=== PATIENT | female | born 1930 | race Caucasian/White ===

== ENCOUNTER 2016-07-11 19:32 | Observation (INO) | payer MEDICARE ==
--- NOTE | 2016-07-11 20:04 | Emergency Department Record ---
History of Present Illness - General Chief Complaint: Syncope Stated Complaint: SYNCOPE Source: Patient, EMS Mode of Arrival: EMS Limitations: No limitations - History of Present Illness Initial Comments: 85 yo female presents after almost passing out per the patient and a concern by the [facility] staff that she passed out. 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 she does not believe she passed out but nearly did. No chest pain. No shortness of breath. No pain. No new weakness or dizziness. No history of CAD or syncope. She and her brother in law deny any recent changes in her health. She states she is not having any symptoms at this time. Witnesses state the patient had complete LOC with syncope. No incontinence. No seizure. MD Complaint: Loss of consciousness -: Minutes(s) Prodromal Symptoms: Lightheaded -: Minutes(s) Witnessed: Yes - by bystander Injuries Sustained Associated with Event: None Current Symptoms: None Treatments Prior to Arrival: None - [place] Coma Scale Eye Response: (4) Open spontaneously Motor Response: (6) Obeys commands Verbal Response: (5) Oriented [place] Total: 15 - Related Data Home Medications Medication Instructions Recorded Confirmed Last Taken Cholecalciferol (Vitamin D3) 5,000 unit PO DAILY 07/11/16 07/11/16 07/11/16 [Vitamin D3] Furosemide [Lasix] 20 mg PO DAILY 07/11/16 07/11/16 07/11/16 Levothyroxine Sodium [Synthroid] 25 mcg PO DAILY 07/11/16 07/11/16 07/11/16 Lisinopril 20 mg PO DAILY 07/11/16 07/11/16 07/11/16 Metformin HCl [Glucophage] 500 mg PO DAILY 07/11/16 07/11/16 07/11/16 Ondansetron HCl [Zofran] 4 mg PO Q6HR PRN 07/11/16 07/11/16 Unknown Trazodone HCl [Desyrel] 50 mg PO QHS PRN 07/11/16 07/11/16 Unknown Allergies Allergy/AdvReac Type Severity Reaction Status Date / Time iopamidol [IOPAMIDOL] Allergy Unknown PT UNSURE Verified 07/11/16 20:14 OF REACTION Review of Systems Constitutional: Reports: Weakness. Denies: Chills, Fever, Malaise Eyes: Denies: Eye discharge, Eye pain, Photophobia, Vision change ENT: Denies: Congestion, Throat pain Respiratory: Denies: Cough, Dyspnea, Hemoptysis, Stridor, Wheezes Cardiovascular: Reports: Syncope. Denies: Arrhythmia, Chest pain, Dyspnea on exertion, Edema, Palpitations Endocrine: Denies: Fatigue, Polydipsia, Polyuria Gastrointestinal: Denies: Abdominal pain, Diarrhea, Nausea, Vomiting Genitourinary: Denies: Dysuria, Urgency Musculoskeletal: Denies: Arthralgia, Back pain, Myalgia, Neck pain Skin: Denies: Bruising, Change in color, Rash Neurological: Denies: Confusion, Headache, Numbness, Tremors, Vertigo, Weakness Psychiatric: Denies: Anxiety Hematological/Lymphatic: Denies: Blood Clots, Easy bleeding, Easy bruising, Swollen glands Physical Exam - General General Appearance: Alert, Oriented x3, Cooperative, No acute distress Limitations: No limitations - Head Head exam: Atraumatic, Normocephalic, Normal inspection - Eye Eye exam: Normal appearance, PERRL. negative: Conjunctival injection, Periorbital swelling - ENT ENT exam: Normal exam, Mucous membranes moist, Normal external ear exam, Normal orophraynx Ear exam: Normal external inspection. negative: External canal tenderness Nasal Exam: Normal inspection. negative: Discharge, Sinus tenderness Mouth exam: Normal external inspection, Tongue normal Teeth exam: Normal inspection. negative: Dental caries Throat exam: Normal inspection. negative: Tonsillar erythema, Tonsillar exudate - Neck Neck exam: Normal inspection, Full ROM. negative: Lymphadenopathy, Tenderness - Respiratory Respiratory exam: Normal lung sounds bilaterally. negative: Respiratory distress, Rhonchi, Stridor, Wheezes - Cardiovascular Cardiovascular Exam: Regular rate, Normal rhythm, Normal heart sounds - GI/Abdominal GI/Abdominal exam: Soft. negative: Tenderness - Rectal Rectal exam: Deferred - exam: Deferred - Extremities Extremities exam: Normal inspection, Full ROM, Normal capillary refill. negative: Tenderness - Back Back exam: Reports: Normal inspection, Full ROM. Denies: Muscle spasm, Rash noted, Tenderness - Neurological Neurological exam: Alert, Normal gait, Oriented X3, Reflexes normal. 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 07/11/16 22:46 Medical Decision Making - Lab Data Result diagrams: 07/11/16 19:13 07/11/16 19:13 Disposition Disposition: Admit Clinical Impression: Syncope Qualifiers: Syncope type: unspecified Qualified Code(s): R55 - Syncope and collapse Decision to Admit: Admit from ER Decision to Admit Date: 07/11/16 Decision to Admit Time: 22:47 Forms: Patient Portal Access Time of Disposition: 22:47
[2016-07-11 20:20] LABS: BASO % 0.2 % (0-6); EOS % 2.7 % (0-6); GRAN % 52.6 % (47-80); HEMATOCRIT 37.9 % (35.0-47.0); HEMOGLOBIN 12.3 gm/dl (11.6-16.0); LYMPH % 33.5 % (16-45); MEAN CORPUSCULAR HEMOGLOBIN 29.9 pg (27-33); MEAN CORPUSCULAR HGB CONC 32.5 g/dl (32-36); MEAN PLATELET VOLUME 9.6 fl (7.4-10.4); PLATELET COUNT 343 K/uL (130-400); RED BLOOD COUNT 4.12 M/uL (3.80-5.40)
[2016-07-11 20:32] LABS: ALB/GLOB RATIO 1.3 (1.1-1.8); ALBUMIN 3.8 gm/dL (3.5-5.0); ALKALINE PHOSPHATASE 57 U/L (38-126); ALT/SGPT 20 U/L (9-52); ANION GAP 7.9 (7-16); AST/SGOT 21 U/L (14-36); BILIRUBIN,TOTAL 0.61 mg/dL (0.2-1.3); BLOOD UREA NITROGEN 36 mg/dL (7-17); CARBON DIOXIDE 30.1 mmol/L (22-30); CREATINE PHOSPHOKINASE 32 U/L (30-135); CREATININE 1.4 mg/dL (0.52-1.04); EST GLOMERULAR FILTRATION RATE 38 ml/min; GLUCOSE,RANDOM 125 mg/dL (70-110); TOTAL PROTEIN 6.7 gm/dL (6.3-8.2)
[2016-07-11 20:33] LABS: INR 0.95; PARTIAL THROMBOPLASTIN TIME 24.3 SECONDS (24.5-39.1); PROTHROMBIN TIME (PATIENT) 10.7 SECONDS (9.5-12.1)
[2016-07-11 20:43] LABS: CKMB 0.6 ug/L (0-6); TROPONIN I < 0.012 ng/mL (0.00-0.034)
[2016-07-12] MEDS ORDERED: 0.9 % SODIUM CHLORIDE 1000ML 1,000 ML IV PRN (00:22)
[2016-07-12] MEDS ORDERED: TRAZODONE 50 MG TABLET PO PRN (00:22)
[2016-07-12] MEDS ORDERED: LEVOTHYROXINE SODIUM 25 MCG TABLET PO SCH (07:00)
[2016-07-12 09:06] LABS: CKMB 0.5 ug/L (0-6); TROPONIN I 0.013 ng/mL (0.00-0.034)
[2016-07-12 09:08] LABS: URINE COLOR YELLOW
[2016-07-12 09:09] LABS: URINE APPEARANCE CLEAR; URINE BILIRUBIN NEGATIVE (NEGATIVE); URINE BLOOD NEGATIVE (NEGATIVE); URINE GLUCOSE (UA) NEGATIVE (NEGATIVE); URINE KETONE NEGATIVE (NEGATIVE); URINE LEUKOCYTE ESTERASE NEGATIVE (NEGATIVE); URINE NITRITE NEGATIVE (NEGATIVE); URINE PROTEIN NEGATIVE (NEGATIVE); URINE UROBILINOGEN 0.2 E.U./dL (0.20 - 1.00)
[2016-07-12] MEDS ORDERED: METFORMIN 500 MG TABLET PO SCH (10:00)
[2016-07-12] MEDS ORDERED: LISINOPRIL 20 MG TABLET PO SCH (10:00)
--- NOTE | 2016-07-12 14:08 | History and Physical Report ---
DATE OF ADMISSION: 07/12/2016 CHIEF COMPLAINT: Syncope. HISTORY OF CHIEF COMPLAINT: This 85-year-old female was at the assisted living at [place], [place] and she passed out. She was brought into the Emergency Department by ambulance and is doing much better. No symptoms at the time she got to the Emergency Department. She has no recollection of what happened because of her dementia. Evaluated by Dr. Reyes and no significant objective findings obtained. The head CT was negative. There is EKG showing left bundle branch block. Cardiac enzymes are normal. Labs, the only unremarkable finding was the BUN was elevated at 36, creatinine 1.4. Dehydration may have contributed to her syncope with vasovagal syncope. She was admitted to the hospital for terra cotta mason, serial cardiac EKGs and further evaluation. MEDICAL HISTORY: Diabetes mellitus on metformin, hypothyroidism, hypertension, and dementia. SURGICAL HISTORY: T&A. ADMISSION MEDICATIONS: 1. Vitamin D 5000 units daily. 2. Lasix 20 mg daily. 3. Levothyroxine 25 mcg daily. 4. Lisinopril 20 mg daily. 5. Metformin 500 mg daily. 6. Zofran 4 mg q.6 hours p.r.n. 7. Trazodone 50 mg at h.s. for insomnia. ALLERGIES: Iopamidol, unknown reaction. FAMILY AND PSYCHOSOCIAL HISTORY: Unremarkable. SYSTEMS REVIEW: HEENT: No upper respiratory infection symptoms, cough, cold or congestion. Cardiovascular: No chest pain, palpitation, arrhythmia. Respiratory: No cough, cold or congestion. Gastrointestinal: No nausea, vomiting, diarrhea, black stools or bloody stools. Genitourinary: No dysuria, hematuria, frequency, or burning on urination. Urine was negative for any signs of urinary tract infection. Musculoskeletal: No joint or bone abnormalities. Moving all 4 extremities. 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 Gynecological: No lumps in her breasts or abnormal vaginal bleeding. Endocrine: She has diabetes mellitus and hypothyroidism. Integument: No rash, ulcers, changing moles, or yellow skin. PHYSICAL EXAMINATION: VITAL SIGNSs: Height is 4 feet 9 inches. Weight is 148 pounds. Temperature is 97. Pulse is 74. Respiratory rate is 12. Blood pressure is 139/62. Pulse ox is 99% on room air. HEENT: Pupils are equal, round and reactive to light and accommodation. Extraocular muscles are intact. Throat is clear. Nose is clear. The tympanic membranes are tucker. NECK: Supple, no jugular venous distention, no hepatojugular reflux, no carotid bruits. Thyroid is smooth. CARDIOVASCULAR: Regular rate and rhythm without murmurs, clicks, rubs, or gallops. Monitor showing left bundle branch block. RESPIRATORY: Clear to auscultation and percussion. ABDOMEN: Soft, nontender, no hepatosplenomegaly, no masses, no tenderness. Bowel sounds active. No bruits. EXTREMITIES: No pitting edema, no cyanosis, no clubbing. Full range of motion. Peripheral pulses good. BREASTS, GYNECOLOGIC AND RECTAL: Deferred. NEUROLOGIC: Cranial nerves II-XII intact. No gross deficits. Sensation normal. Strength normal. Deep tendon reflex equal bilaterally. She has an old [place] palsy with slight asymmetry of her face. Babinski negative. MENTAL STATUS: Alert and oriented x 3. IMPRESSION: 1. Syncope. 2. Dehydration. 3. Vasovagal syncope. 4. Status post diabetes mellitus. 5. Status post hypothyroidism. 6. Status post hypertension. 7. Status post dementia. PLAN: Cardiac monitoring, serial cardiac enzymes and will stop the Lasix. She was given IV fluids cautiously. MTDD
--- NOTE | 2016-07-13 15:34 | Discharge Summary ---
DATE OF ADMISSION: 07/12/2016 DATE OF DISCHARGE: 07/12/2016 DISCHARGE DIAGNOSES: 1. Syncope. 2. Dehydration. 3. Vasovagal syncope. 4. Status post diabetes mellitus. 5. Status post hypothyroidism. 6. Status post hypertension. ATTENDING PHYSICIAN: Johny Erickson DO REASON FOR HOSPITALIZATION: This 85-year-old female passed out at the [facility] in [place], [place], was brought into the emergency department by ambulance, evaluated by Dr. Reyes. She was doing fine, talking. No findings were obtained in the Emergency Department. EKG showing left bundle branch block. Cardiac enzymes are normal. She was placed in the hospital for cardiac monitoring and further evaluation. She had an elevated BUN and creatinine and she is on Lasix. I feel that her dehydration was adding to her syncope. Significant findings from examination: Two sets of cardiac enzymes were negative. The EKG stayed the same at left bundle branch block. Her cardiac monitoring is showing no significant arrhythmias. She is in normal sinus rhythm. LABORATORY: WBC was 9000, hemoglobin was 12.3. Her BUN was 36, creatinine was 1.4, potassium was 3.7. Cardiac enzymes x 2 were negative. THERAPY PROVIDED: The patient was given IV fluids and is doing much better, sitting up at the bedside, moving around the room without anybody assisting her. REVIEW OF SYSTEMS: She does have dementia, does nontender remember any of the events that happened, and she is eating breakfast. She denies any current pain , difficulty breathing, abdominal discomfort, or any problems with swelling in her legs. HOSPITAL COURSE: The patient is improved and is doing much better. CONDITION AT DISCHARGED: Improved. DISCHARGE INSTRUCTIONS: Follow up with Dr. De La Vega on July 18. She is to be discharged back to the [facility] in [place], [place]. We will discontinue the Lasix. Recommend checking her glucose once a day for diabetes. If stable can spread it out to once a week. ACTIVITY: As tolerated. DIET: Low-salt diet. DISCHARGE MEDICATIONS: 1. Vitamin D 5000 units once a week. 2. Levothyroxine 25 mcg daily. 3. Lisinopril 20 mg daily. 4. Metformin 500 mg daily. 5. Trazodone 50 mg at h.s. FOLLOWUP: We will schedule at outpatient carotid Doppler and Dr. De La Vega can follow up on this as an outpatient. ADDENDUM 07/12/16 @ [id number] After contacting the assisted living where the patient lives, it was determined that she no longer sees Dr. De La Vega but the visiting physician comes in and sees the patient periodically at the assisted living, so she should be following up with the doctor at the visiting physicians group in the next 1-2 weeks. The carotid Doppler results should go to the visiting physician, whoever that person is at the assisting living. JAG
== END 2016-07-12 10:48 | disposition home health service (06) ==
LOC: ER 19:32 → MEDSURG 07-12 00:02
PROVIDERS: ADMIT Emergency Medicine; ATTEND Emergency Medicine
DX: R55 Syncope and collapse (principal); E86.0 Dehydration; E11.9 Type 2 diabetes mellitus without complications; I10 Essential (primary) hypertension; F03.90 Unspecified dementia, unspecified severity, without behavioral disturbance, psychotic disturbance, mood disturbance, and anxiety; Z79.84 Long term (current) use of oral hypoglycemic drugs; E03.9 Hypothyroidism, unspecified
CPT/HCPCS: 99285 ×2; 82550; 83735; 85025; 85730; 85610; 82553 ×2; 84484 ×2; 80053; 81003; 93005 ×2; 93010; G0378; 99236